=== PATIENT | female | born 1950 | race Caucasian/White ===

== ENCOUNTER 2022-10-07 05:17 | Inpatient (IN) | payer MEDICARE, OTHER ==
[~2022-10-07] VITALS: Ht 165.1 cm; Wt 79.6 kg
[~2022-10-07 05:17] MED LIST: AMLO1TAB22 PO; ATE50T PO; ATOR10TA52 PO; FERR65TA12 PO; HYDR25TA5 PO; LEVO112T4 PO; MAGN250T3 PO; MULT-927 PO; SEMA2INJ3 SC; SITA100T7 PO
[2022-10-09 06:25] LABS: Basophils # (auto) 0 10 ^3/uL (0-0.2); Eosinophils # (auto) 0 10 ^3/uL (0-0.8); Hematocrit 26.7 % (36.0-46.0); Lymphocytes # (auto) 0.5 10 ^3/uL (0.4-5.4); Lymphocytes % (auto) 3.8 % (10.0-50.0)
[2022-10-09 06:27] LABS: Basophils % (auto) 0.3 % (0.0-2.0); Eosinophils % (auto) 0.2 % (0.0-7.0); Hemoglobin 9.1 g/dL (12.2-16.2); Mean Corpuscular Hemoglobin 33.8 pg (28.0-32.0); Mean Corpuscular Hgb Conc. 34.2 g/dL (32.0-36.0); Mean Corpuscular Volume 98.9 fL (80.0-100.0); Monocytes % (auto) 8.3 % (0.0-12.0); Neutrophils # (auto) 10.6 10 ^3/uL (1.6-8.6); Neutrophils % (auto) 87.4 % (37.0-80.0); Red Cell Distribution Width 13.1 % (11.8-14.3); White Blood Cell 12.2 10^3/uL (4.4-10.8)
[2022-10-09 06:43] LABS: Alanine Aminotransferase 11 U/L (7-40); Albumin 3.4 g/dL (3.2-4.8); Alkaline Phosphatase 53 U/L (46-116); Anion Gap 7.1 (5-15); Aspartate Aminotransferase 27 U/L (13-40); BUN/Creatinine Ratio 20.4 (10.0-20.0); Blood Urea Nitrogen 20 mg/dL (9-23); Calcium 8.7 mg/dL (8.5-10.1); Carbon Dioxide 25.9 mmol/L (20-30); Chloride 94 mmol/L (98-107); Glucose 186 mg/dL (74-106); Magnesium 1.8 mg/dL (1.6-2.6); Potassium 4.3 mmol/L (3.5-5.1)
[2022-10-09 06:44] LABS: Bilirubin, Total 0.7 mg/dL (0.2-1.0); Total Protein 5.8 g/dL (5.7-8.2)
[2022-10-09 07:00] LABS: Sodium 127 mmol/L (136-145)
[2022-10-09] MEDS ORDERED: metroNIDAZOLE 500MG/100ML 100 ML IV ONE (09:00)
[2022-10-09] MEDS ORDERED: cefTRIAXone 1GM/50ML D5W 50 ML IV ONE (09:00)
[2022-10-09 11:15] VITALS: PULSE 92; RESP 17; O2SAT 95
[2022-10-09] MEDS ORDERED: MORPHINE SULFATE INJ 2 MG/ml SYRG IV PRN (11:45)
[2022-10-09] MEDS ORDERED: ONDANSETRON HCL 4 MG/2 ML VIAL IV PRN (11:45)
[2022-10-09] MEDS ORDERED: DOCUSATE SOD 100 MG CAP PO PRN (11:45)
[2022-10-09] MEDS ORDERED: SODIUM CHLORIDE 0.9% 1,000 ML IV SCH (12:00)
[2022-10-09] MEDS ORDERED: PIPERACILLIN-TAZOB 3.375GM 100 ML IV SCH (12:28)
[2022-10-09 14:14] LABS: Urine WBC None Seen /hpf (0 - 5)
[2022-10-09 14:23] LABS: Urine Bacteria NONE SEEN /hpf (None Seen); Urine Blood Negative /uL (Negative); Urine Clarity HAZY (Clear); Urine Protein, UAD Negative (Negative); Urine Specific Gravity 1.006 (1.001-1.035); Urine Urobilinogen Normal (Negative)
[2022-10-09 14:39] LABS: Urine Color Yellow (Yellow)
[2022-10-09] MEDS: ACETAMINOPHEN/CODEINE#3 (300/30mg) TAB PO PRN ×2 (16:50→23:15)
[2022-10-09] MEDS: SODIUM CHLORIDE 0.9% 1,000 ML IV SCH (17:20)
[2022-10-09 20:55] VITALS: PULSE 98; RESP 18; O2SAT 94
[2022-10-09] MEDS: ATENOLOL 50 MG TAB PO SCH (21:57)
[2022-10-09 22:00] VITALS: BP 139/62; PULSE 98; RESP 18; TEMP 98.1; O2SAT 98
[2022-10-09] MEDS: FERROUS SULFATE DRIED 65 MG PO SCH (22:00)
[2022-10-09 23:06] VITALS: BP_SYST 110; BP_SYST 139; BP_DIAS 51; BP_DIAS 62; PULSE 84; RESP 18; TEMP 98.1; O2SAT 98
[2022-10-09] MEDS: ATORVASTATIN 20 MG TAB PO SCH (23:15)
[2022-10-10] VITALS (7 sets, daily range): BP systolic 121–173; BP diastolic 55–67; PULSE 77–88; RESP 17–20; TEMP 97.4–98.5; O2SAT 96–98
[2022-10-10] MEDS: SODIUM CHLORIDE 0.9% 1,000 ML IV SCH ×3 (00:37→21:17)
[2022-10-10 05:09] LABS: Basophils # (auto) 0 10 ^3/uL (0-0.2); Basophils % (auto) 0.3 % (0.0-2.0); Eosinophils # (auto) 0.1 10 ^3/uL (0-0.8); Hematocrit 25.8 % (36.0-46.0); Lymphocytes # (auto) 1.2 10 ^3/uL (0.4-5.4); Monocytes # (auto) 1.1 10 ^3/uL (0-1.3)
[2022-10-10 05:12] LABS: Eosinophils % (auto) 0.9 % (0.0-7.0); Hemoglobin 8.9 g/dL (12.2-16.2); Lymphocytes % (auto) 9.9 % (10.0-50.0); Mean Corpuscular Hemoglobin 34.1 pg (28.0-32.0); Mean Corpuscular Hgb Conc. 34.4 g/dL (32.0-36.0); Mean Corpuscular Volume 99.2 fL (80.0-100.0); Monocytes % (auto) 9.6 % (0.0-12.0); Neutrophils # (auto) 9.4 10 ^3/uL (1.6-8.6); Neutrophils % (auto) 79.3 % (37.0-80.0); Red Cell Distribution Width 13.5 % (11.8-14.3); White Blood Cell 11.9 10^3/uL (4.4-10.8)
[2022-10-10 05:27] LABS: Alanine Aminotransferase 11 U/L (7-40); Albumin 3.3 g/dL (3.2-4.8); Alkaline Phosphatase 55 U/L (46-116); Aspartate Aminotransferase 27 U/L (13-40); BUN/Creatinine Ratio 16.5 (10.0-20.0); Bilirubin, Total 0.7 mg/dL (0.2-1.0); Blood Urea Nitrogen 15 mg/dL (9-23); Calcium 8.8 mg/dL (8.7-10.4); Chloride 99 mmol/L (98-107); Glucose 136 mg/dL (74-106); Total Protein 5.8 g/dL (5.7-8.2)
[2022-10-10 05:34] LABS: Sodium 132 mmol/L (136-145)
[2022-10-10] MEDS: HCTZ 25 MG TAB PO SCH (07:01)
[2022-10-10] MEDS: LEVOTHYROXINE SODIUM 112 MCG TAB PO SCH (07:01)
[2022-10-10] MEDS: MULTIPLE VITAMINS W/ MINERALS TAB PO SCH (07:01)
[2022-10-10] MEDS: FERROUS SULFATE DRIED 65 MG PO SCH (10:00)
[2022-10-10] MEDS: amLODIPine BESYLATE 5 MG TAB PO SCH (10:27)
[2022-10-10] MEDS: ATENOLOL 50 MG TAB PO SCH (18:58)
[2022-10-10] MEDS: FERROUS SULFATE 325mg EC TAB PO SCH (21:09)
[2022-10-10] MEDS: ATORVASTATIN 20 MG TAB PO SCH (21:10)
[2022-10-11 05:00] VITALS: BP 131/45; PULSE 80; RESP 18; TEMP 98.2; O2SAT 94
[2022-10-11] MEDS: LEVOTHYROXINE SODIUM 112 MCG TAB PO SCH (06:34)
[2022-10-11] MEDS: MULTIPLE VITAMINS W/ MINERALS TAB PO SCH (06:34)
[2022-10-11] MEDS: HCTZ 25 MG TAB PO SCH (06:42)
[2022-10-11] MEDS: SODIUM CHLORIDE 0.9% 1,000 ML IV SCH ×2 (06:42→15:57)
[2022-10-11 09:00] VITALS: BP 158/47; PULSE 85; RESP 18; TEMP 97.8; O2SAT 95
[2022-10-11] MEDS: FERROUS SULFATE 325mg EC TAB PO SCH ×2 (09:27→21:13)
[2022-10-11] MEDS: amLODIPine BESYLATE 5 MG TAB PO SCH (09:27)
[2022-10-11] MEDS ORDERED: ENOXAPARIN SOD 80 MG/0.8ML SYRINGE SC ONE (12:15)
[2022-10-11 13:00] VITALS: BP 139/50; PULSE 77; RESP 18; TEMP 98.1; O2SAT 97
[2022-10-11 17:00] VITALS: BP 121/56; PULSE 77; RESP 18; TEMP 97.9; O2SAT 99
[2022-10-11] MEDS: ATENOLOL 50 MG TAB PO SCH (17:54)
[2022-10-11 20:00] VITALS: PULSE 85; RESP 18; O2SAT 94
[2022-10-11] MEDS: ATORVASTATIN 20 MG TAB PO SCH (21:15)
[2022-10-11] MEDS: ACETAMINOPHEN/CODEINE#3 (300/30mg) TAB PO PRN (21:16)
[2022-10-11 22:00] VITALS: BP 122/56; PULSE 85; RESP 18; TEMP 97.9; O2SAT 94
[2022-10-11] MEDS ORDERED: ENOXAPARIN SOD 60 MG/0.6 ML SYRINGE SC SCH (22:00)
[2022-10-12] MEDS: SODIUM CHLORIDE 0.9% 1,000 ML IV SCH ×2 (03:13→12:06)
[2022-10-12 05:00] VITALS: BP 125/87; PULSE 78; RESP 18; TEMP 98.4; O2SAT 94
[2022-10-12] MEDS: MULTIPLE VITAMINS W/ MINERALS TAB PO SCH (06:07)
[2022-10-12] MEDS: LEVOTHYROXINE SODIUM 112 MCG TAB PO SCH (06:07)
[2022-10-12] MEDS: HCTZ 25 MG TAB PO SCH (06:08)
[2022-10-12 09:18] VITALS: BP 102/52; PULSE 72; RESP 17; TEMP 97.9; O2SAT 94
[2022-10-12] MEDS: FERROUS SULFATE 325mg EC TAB PO SCH (09:50)
[2022-10-12] MEDS ORDERED: ENOXAPARIN SOD 40 MG/0.4 ML SYRINGE SC SCH (10:00)
[2022-10-12] MEDS: amLODIPine BESYLATE 5 MG TAB PO SCH (10:00)
== END 2022-10-12 15:30 | DRG 470 ==
LOC: ER 05:17 → OVERFLOW 05:20 → EDUNIT# 10-09 05:09 → ER 10-09 05:17 → EDBD 10-09 05:17 → UNDOADMIN 10-09 11:46 → OVERFLOW 10-09 11:46 → ER 10-09 22:00 → WEST WING 10-09 22:08 → OVERFLOW 10-09 22:08 → ER 10-12 15:30 → UNDODISIN 10-12 15:30
PROVIDERS: ADMIT Nurse Practitioner Family; ATTEND Nurse Practitioner Family
PROC: 0SRC069 Replacement of Right Knee Joint with Oxidized Zirconium on Polyethylene Synthetic Substitute, Cemented, Open Approach (ICD-10-PCS; principal; 2022-10-07)
DX: M17.11 Unilateral primary osteoarthritis, right knee (principal); D62 Acute posthemorrhagic anemia; E87.1 Hypo-osmolality and hyponatremia; E78.5 Hyperlipidemia, unspecified; I10 Essential (primary) hypertension; Z96.651 Presence of right artificial knee joint; E03.9 Hypothyroidism, unspecified; T14.8XXA Other injury of unspecified body region, initial encounter; E11.9 Type 2 diabetes mellitus without complications; D72.829 Elevated white blood cell count, unspecified; W01.0XXA Fall on same level from slipping, tripping and stumbling without subsequent striking against object, initial encounter; Z80.0 Family history of malignant neoplasm of digestive organs; Z82.49 Family history of ischemic heart disease and other diseases of the circulatory system; Y93.89 Activity, other specified; Y92.098 Other place in other non-institutional residence as the place of occurrence of the external cause; Y99.8 Other external cause status
CPT/HCPCS: 36415; 71045; 73560; 73562; 73700; 80053; 81001; 82962; 83036; 83735; 83880; 84484; 85025; 85610; 85730; 86850; 86900; 86901; 87081; 93005; 96365; 96367; 97110; 97116; 97163; 97530; G0378; J0690; J0696; J1885; J2250; J2543; J3490

== ENCOUNTER 2022-10-07 08:12 | Inpatient (IN) | payer MEDICARE, OTHER ==
[2022-10-02 12:26] LABS: Urine WBC None Seen /hpf (0 - 5)
[2022-10-02 12:32] LABS: Basophils # (auto) 0.1 10 ^3/uL (0-0.2); Basophils % (auto) 1.3 % (0.0-2.0); Eosinophils # (auto) 0.2 10 ^3/uL (0-0.8); Eosinophils % (auto) 2.9 % (0.0-7.0); Hematocrit 34.3 % (36.0-46.0); Hemoglobin 11.7 g/dL (12.2-16.2); Lymphocytes # (auto) 1.8 10 ^3/uL (0.4-5.4); Lymphocytes % (auto) 28.1 % (10.0-50.0); Mean Corpuscular Hemoglobin 33.7 pg (28.0-32.0); Mean Corpuscular Hgb Conc. 34.2 g/dL (32.0-36.0); Mean Corpuscular Volume 98.6 fL (80.0-100.0); Monocytes # (auto) 0.6 10 ^3/uL (0-1.3); Monocytes % (auto) 10.1 % (0.0-12.0); Neutrophils # (auto) 3.6 10 ^3/uL (1.6-8.6); Neutrophils % (auto) 57.6 % (37.0-80.0); Nucleated Red Blood Cells % 0.2 %; Red Blood Cells 3.48 10^6/uL (4.0-5.20); Red Cell Distribution Width 13.6 % (11.8-14.3); White Blood Cell 6.3 10^3/uL (4.4-10.8)
[2022-10-02 12:36] LABS: Urine Bacteria NONE SEEN /hpf (None Seen); Urine Blood Negative /uL (Negative); Urine Clarity Clear (Clear); Urine Color Yellow (Yellow); Urine Protein, UAD Negative (Negative); Urine Urobilinogen Normal (Negative)
[2022-10-02 12:46] LABS: INR 1.23 (0.9-1.15); Partial Thromboplastin Time 26.3 SEC (24.5-34.5); Prothrombin Time 12.7 sec (9.3-11.8)
[2022-10-02 13:06] LABS: Albumin 3.6 g/dL (3.4-5.0); Calcium 9.3 mg/dL (8.5-10.1); Potassium 3.5 mmol/L (3.5-5.1)
[2022-10-02 13:09] LABS: BUN/Creatinine Ratio 19.8 (10.0-20.0); Bilirubin, Total 0.6 mg/dL (0.2-1.0); Total Protein 7.7 g/dL (6.4-8.2)
[2022-10-06 19:00] VITALS: BP 103/50; PULSE 70; RESP 16; O2SAT 90
[2022-10-07] VITALS (7 sets, daily range): BP systolic 100–140; BP diastolic 52–88; PULSE 65–75; RESP 18–20; TEMP 97.5–98.8; O2SAT 90–100
[~2022-10-07] VITALS: Ht 160 cm; Wt 81.0 kg
[~2022-10-07 08:12] MED LIST changes: +ceFAZolin 1GM/50ML 100 ML IV ONE
[2022-10-07] MEDS: KETOROLAC TROMETH 30 MG/ML 1ML VIAL ONE ×2 (08:38→11:30)
[2022-10-07] MEDS ORDERED: TRANEXAMIC ACID 20 ML ONE (08:39)
[2022-10-07] MEDS: VANCOMYCIN HCL 1000 MG VL ONE ×2 (08:39→10:20)
[2022-10-07] MEDS: BUPIVACAINE W/ EPINEPH 0.5% INJ 50ML MDV IJ ONE ×2 (08:53→11:30)
[2022-10-07] MEDS ORDERED: MIDAZOLAM HCL 2MG/2ML 2ml VIAL (1mg/ml) ONE (09:36)
[2022-10-07] MEDS ORDERED: fentaNYL CITRATE 100 MCG/2 ML VL ONE (09:36)
[2022-10-07] MEDS ORDERED: MORPHINE SULF PF 5 MG/10 ML VIAL ONE (09:37)
[2022-10-07] MEDS ORDERED: TETRACAINE 1% INJ 2 ML VIAL IJ ONE (09:38)
[2022-10-07] MEDS ORDERED: PATIENTS OWN MEDICATION (Atorvastatin Calcium 10 MG) PO SCH (10:00)
[2022-10-07] MEDS: amLODIPine BESYLATE 5 MG TAB PO SCH (10:00)
[2022-10-07] MEDS ORDERED: NALBUPHINE HCL 10 MG/1ml INJECTION SUBCUT ONE (10:45)
[2022-10-07] MEDS ORDERED: ONDANSETRON HCL 4 MG/2 ML VIAL IV PRN (10:45)
[2022-10-07] MEDS ORDERED: DexAMETHasone SOD PHOS 10MG/1ML VIAL INJ IV PRN (10:45)
[2022-10-07] MEDS ORDERED: NALOXONE HCL 0.4 MG/ML VIAL IV PRN (10:45)
[2022-10-07] MEDS ORDERED: oxyCODONE HCL 5MG TAB PO PRN ×2 (11:45)
[2022-10-07] MEDS ORDERED: ACETAMINOPHEN 325 MG TAB PO PRN (11:45)
[2022-10-07] MEDS: KETOROLAC TROMETH 30 MG/ML 1ML VIAL IV SCH ×3 (12:00→23:48)
[2022-10-07] MEDS: ACETAMINOPHEN 325 MG TAB PO SCH ×3 (12:00→23:48)
[2022-10-07] MEDS: SODIUM CHLORIDE 0.9% 1,000 ML IV SCH ×2 (12:10→21:45)
[2022-10-07] MEDS ORDERED: ATENOLOL 50 MG TAB PO SCH (18:00)
[2022-10-07] MEDS: ceFAZolin 2 GM/D5W100ml 100 ML IV SCH (19:23)
[2022-10-07] MEDS ORDERED: ATORVASTATIN 20 MG TAB PO SCH (22:00)
[2022-10-07] MEDS: PREGABALIN 25 MG CAP PO SCH (22:40)
[2022-10-08] VITALS (15 sets, daily range): BP systolic 98–119; BP diastolic 52–94; PULSE 63–77; RESP 16–20; TEMP 97.7–98.6; O2SAT 90–99
[2022-10-08] MEDS: ceFAZolin 2 GM/D5W100ml 100 ML IV SCH (01:21)
[2022-10-08] MEDS: ACETAMINOPHEN 325 MG TAB PO SCH ×2 (06:28→12:09)
[2022-10-08] MEDS: KETOROLAC TROMETH 30 MG/ML 1ML VIAL IV SCH ×2 (06:30→12:09)
[2022-10-08] MEDS ORDERED: MAGNESIUM OXIDE 400 MG TAB PO SCH (07:00)
[2022-10-08] MEDS ORDERED: LEVOTHYROXINE SODIUM 112 MCG TAB PO SCH (07:00)
[2022-10-08] MEDS ORDERED: MULTIPLE VITAMINS W/ MINERALS TAB PO SCH (07:00)
[2022-10-08] MEDS ORDERED: HCTZ 25 MG TAB PO SCH (07:00)
[2022-10-08] MEDS ORDERED: MAGNESIUM PO SCH (07:00)
[2022-10-08] MEDS: SODIUM CHLORIDE 0.9% 1,000 ML IV SCH (08:23)
[2022-10-08] MEDS: amLODIPine BESYLATE 5 MG TAB PO SCH (09:39)
[2022-10-08] MEDS: PREGABALIN 25 MG CAP PO SCH (09:39)
[2022-10-08] MEDS ORDERED: Sitagliptin (Januvia) 100 MG TAB PO SCH (10:00)
[2022-10-08] MEDS ORDERED: ASPirin 81 mg TAB PO SCH (10:00)
== END 2022-10-08 18:00 | disposition home or self-care (01) | DRG 470 ==
LOC: SUR 08:12 → TELE 11:38 → TELE-WESTW 16:25
PROVIDERS: ADMIT Orthopaedic Surgery; ATTEND Orthopaedic Surgery
PROC: 0SRC069 Replacement of Right Knee Joint with Oxidized Zirconium on Polyethylene Synthetic Substitute, Cemented, Open Approach (ICD-10-PCS; principal; 2022-10-07 09:37)
DX: M17.11 Unilateral primary osteoarthritis, right knee (principal); M21.00 Valgus deformity, not elsewhere classified, unspecified site
CPT/HCPCS: 36415; 73562; 80053; 81001; 82962; 85025; 85610; 85730; 86850; 86900; 86901; 97110; 97116; 97163; 97530; G0378; J0690; J1885; J2250